=== PATIENT | female | born 1980 | race Two or more races ===

== ENCOUNTER 2024-06-14 19:54 | Emergency (ER) | payer OTHER ==
[~2024-06-14] VITALS: Ht 165.1 cm; Wt 52.2 kg
[2024-06-14] MEDS ORDERED: LIDOCAINE 1% HCL (LOCAL ANESTH.) INJ 20ML MDV ONE (22:31)
[2024-06-14 22:32] VITALS: BP 111/68; TEMP 98.1
[2024-06-14 22:36] VITALS: PULSE 81; RESP 16; O2SAT 100
[2024-06-14] MEDS: LIDOCAINE 1% HCL (LOCAL ANESTH.) INJ 20ML MDV ID ONE (22:41)
[2024-06-14] MEDS ORDERED: HYDR-4902 PO (23:44)
[2024-06-14] MEDS ORDERED: CYCL-837 PO (23:44)
[2024-06-14] MEDS ORDERED: AMOX875T4 PO (23:48)
== END 2024-06-14 23:56 | disposition home or self-care (01) ==
LOC: ER 19:54
DX: S01.511A Laceration without foreign body of lip, initial encounter (principal); S20.211A Contusion of right front wall of thorax, initial encounter; Y04.2XXA Assault by strike against or bumped into by another person, initial encounter; Y93.89 Activity, other specified; Y92.89 Other specified places as the place of occurrence of the external cause; Y99.8 Other external cause status
CPT/HCPCS: 12051; 70450; 70486; 99284; J2001